=== PATIENT | male | born 1980 | race Caucasian/White ===

== ENCOUNTER 2017-01-23 19:16 | Emergency (ER) | payer OTHER ==
[~2017-01-23] VITALS: Ht 170.2 cm; Wt 81.6 kg
--- NOTE | 2017-01-23 19:16 | NUR ---
Patient was BIBA and taken to bed 05 via gurney per EMS.
[2017-01-23 19:22] VITALS: BP 131/95
--- NOTE | 2017-01-23 19:30 | NUR ---
Patient being evaluated by at bedside.
[2017-01-23] MEDS ORDERED: NACL 0.9% 2,000 ML IV ONE (19:35)
--- NOTE | 2017-01-23 20:20 | NUR ---
Note undone in EDM - 01/23/17 at 2102 by [facility] 36Y/M PT. BIBA TO ED WITH C/O ALOC. PER EMS;PT.WAS FOUND SLEEPING AT THE BACK SEAT OF THE CAR WITH 2 BOTTLE VODKA, AAO X1 TO SELF ON SCENE. 2 LITERS NSS GIVEN. . DENIES N/V/D; SKIN IS PINK/WARM/DRY; AAOX4 WITH EVEN AND STEADY GAIT; LUNGS CLEAR BL; HR EVEN AND REGULAR; PT DENIES ANY FEVER, CP, SOB, OR COUGH AT THIS TIME; PATIENT STATES PAIN OF 0/10 AT THIS TIME; VSS; PATIENT POSITIONED FOR COMFORT; HOB ELEVATED; BEDRAILS UP X2; BED DOWN. ER MD MADE AWARE OF PT STATUS.
--- NOTE | 2017-01-23 20:20 | NUR ---
36Y/M PT. BIBA TO ED WITH C/O ALOC. PER EMS;PT.WAS FOUND SLEEPING AT THE BACK SEAT OF THE CAR WITH 2 BOTTLE VODKA, AAO X1 TO SELF ON SCENE. 2 LITERS NSS GIVEN. . DENIES N/V/D; SKIN IS PINK/WARM/DRY; AAOX3 UNABLE TO AMBULATE AT THIS TIME; LUNGS CLEAR BL; HR EVEN AND REGULAR; PT DENIES ANY FEVER, CP, SOB, OR COUGH AT THIS TIME; PATIENT STATES PAIN OF 0/10 AT THIS TIME; VSS; PATIENT POSITIONED FOR COMFORT; HOB ELEVATED; BEDRAILS UP X2; BED DOWN. ER MD MADE AWARE OF PT STATUS.
--- NOTE | 2017-01-23 21:25 | NUR ---
Patient discharged with v/s stable. Written and verbal after care instructions given and explained. Patient verbalized understanding. Ambulatory with steady gait. All questions addressed prior to discharge. Advised to follow up with PMD.
--- NOTE | 2017-01-23 21:30 | NUR ---
[facility] ARRIVED PER PATIENT'S REQUEST. Addendum: 01/23/17 at 2144 by [facility] CALLED [facility] PER PATIENT'S REQUEST
[2017-01-23 21:36] VITALS: BP 108/58
== END 2017-01-23 21:25 | disposition home or self-care (01) ==
LOC: MED 19:16
PROC: 3E033GC Introduction of Other Therapeutic Substance into Peripheral Vein, Percutaneous Approach (ICD-10-PCS; principal; 2017-01-23)
DX: F10.129 Alcohol abuse with intoxication, unspecified (principal)
CPT/HCPCS: 80305; 96360; 96361; 99285; C1758; J7030